=== PATIENT | male | born 1960 | race Caucasian/White ===

== ENCOUNTER 2022-01-19 19:38 | Emergency (ER) | payer OTHER ==
[~2022-01-19] VITALS: Ht 165.1 cm; Wt 86.2 kg
[2022-01-19 20:33] VITALS: BP 149/110
--- NOTE | 2022-01-19 23:20 | NUR ---
Dr. George at [facility] to exam patient.
--- NOTE | 2022-01-20 00:41 | NUR ---
Dr. George at [facility] to re-exam patient and explain treatment plans with slot attendant.
--- NOTE | 2022-01-20 00:43 | NUR ---
PT BROUGHT BACK TO CHAIR A FOR AN ULNAR GUTTER SPLINT. PT REFUSED TO HAVE A SPLINT PLACED. ANGELY MADE AWARE.
--- NOTE | 2022-01-20 00:46 | NUR ---
Patient reported, pain and request pain medication, Dr. George notified.
[2022-01-20] MEDS ORDERED: IBUPROFEN 800 MG TAB PO ONE (01:00)
[2022-01-20 01:33] VITALS: BP 142/89
--- NOTE | 2022-01-20 01:33 | NUR ---
Patient discharged with v/s stable. Written and verbal after care instructions given and explained. Patient verbalized understanding. Ambulatory with steady gait. All questions addressed prior to discharge. Advised to follow up with PMD.
== END 2022-01-20 01:33 | disposition home or self-care (01) ==
LOC: MED 19:38
DX: S60.031A Contusion of right middle finger without damage to nail, initial encounter (principal); W22.8XXA Striking against or struck by other objects, initial encounter; Y93.89 Activity, other specified; Y92.89 Other specified places as the place of occurrence of the external cause; Y99.8 Other external cause status
CPT/HCPCS: 73130; 99283